=== PATIENT | male | born 1985 | race Caucasian/White ===

== ENCOUNTER 2020-03-06 22:04 | Emergency (ER) | payer OTHER ==
[2020-03-06 22:25] VITALS: BP 107/73; PULSE 77; TEMP 98.6; BMI 23.0
[2020-03-06] MEDS ORDERED: ONDANSETRON 4 MG/2 ML VIAL IVPUSH ONE (23:11)
[2020-03-06] MEDS ORDERED: THIAMINE HCL 100 MG TABLET (FP) PO ONE (23:11)
[2020-03-06] MEDS ORDERED: LACTATED RINGERS SOLUTION 1000 ML INFUS.BAG IV ONE (23:11)
[2020-03-06] MEDS ORDERED: FOLIC ACID 1 MG TABLET (FP) PO ONE (23:11)
[2020-03-06 23:35] LABS: BASO % 0.9 % (0-2.0); EOS % 2.1 % (0-4.5); HEMATOCRIT 45.7 % (35.4-49); HEMOGLOBIN 15.5 GM/dL (11.7-16.9); LYMPH % 20.8 % (8-40); MCH 29.9 pg (25.7-33.7); MCHC 33.9 g/dl (32.0-35.9); MEAN CELL VOLUME 88.1 fl (80-96); MEAN PLT VOLUME 8.6 fl (7.5-11.1); MONO % 8.3 % (3.8-10.2); NEUT % 67.9 % (42.8-82.8); PLATELET COUNT 292 K/MM3 (134-434); RBC 5.19 M/mm3 (4.00-5.60); RDW 13.6 % (11.9-15.9); WHITE BLOOD COUNT 10.4 K/mm3 (4.0-10.0)
[2020-03-06 23:54] LABS: CALCIUM 9.6 mg/dL (8.5-10.1)
[2020-03-06 23:55] LABS: ALBUMIN 4.6 g/dl (3.4-5.0); BLOOD UREA NITROGEN 13.6 mg/dL (7-18)
[2020-03-06] MEDS ORDERED: FOLIC ACID 1 MG TABLET (FP) ONE (23:55)
[2020-03-06] MEDS ORDERED: THIAMINE HCL 100 MG TABLET (FP) ONE (23:55)
[2020-03-06 23:58] LABS: CREATININE 0.7 mg/dL (0.55-1.3)
[2020-03-07] LABS: TOT PROT 8.4 g/dl (6.4-8.2)
[2020-03-07] MEDS ORDERED: BUPRENORPHINE/NALOXONE 8 MG/2 MG FILM PACKET SL ONE (00:04)
[2020-03-07] MEDS ORDERED: BUPRENORPHINE/NALOXONE 8 MG/2 MG FILM PACKET ONE (00:30)
[2020-03-07 00:43] LABS: BILIRUBIN,TOTAL 0.5 mg/dL (0.2-1)
== END 2020-03-07 00:39 | disposition home or self-care (01) ==
LOC: JER 22:04
PROC: 3E033NZ Introduction of Analgesics, Hypnotics, Sedatives into Peripheral Vein, Percutaneous Approach (ICD-10-PCS; principal; 2020-03-06)
DX: F13.20 Sedative, hypnotic or anxiolytic dependence, uncomplicated (principal)
CPT/HCPCS: 36415; 80053; 85025; 99285-25

== ENCOUNTER 2020-03-14 16:18 | Inpatient (IN) | payer OTHER ==
[2020-03-14 17:40] VITALS: BMI 23.0
[2020-03-14] MEDS ORDERED: METHOCARBAMOL 500 MG TABLET PO PRN (18:40)
[2020-03-14] MEDS ORDERED: MAGNESIUM HYDROX 2400MG/30ML ORAL SUSPENSION 30 ML CUP PO PRN (18:40)
[2020-03-14] MEDS ORDERED: MELATONIN 5 MG TABLETS PO PRN (18:40)
[2020-03-14] MEDS ORDERED: NICOTINE POLACRILEX 2 MG GUM BUC PRN (18:40)
[2020-03-14] MEDS ORDERED: ACETAMINOPHEN 325 MG TABLET (FP) PO PRN (18:40)
[2020-03-14] MEDS ORDERED: MENTHOL/PHENOL 1 EACH UD MM PRN (18:40)
[2020-03-14] MEDS ORDERED: IBUPROFEN 400 MG TABLET (FP) PO PRN (18:40)
[2020-03-14] MEDS ORDERED: BISMUTH SUBSALICYLATE 524 MG/30 ML UD PO PRN (18:40)
[2020-03-14] MEDS ORDERED: ONDANSETRON *ODT* 4 MG TABLET SL PRN (18:40)
[2020-03-14] MEDS ORDERED: MAG HYDROX/AL HYDROX/SIMETH 30 ML UNIT-DOSE CUP PO PRN (18:40)
[2020-03-14] MEDS ORDERED: MAGNESIUM CITRATE 300 ML BOTTLE PO PRN (18:40)
[2020-03-14] MEDS ORDERED: cloNIDine HCL 0.1 MG TABLET PO PRN (18:44)
[2020-03-14] MEDS ORDERED: METHADONE HCL 10 MG TABLET (FOR DETOX USE ONLY) PO ONE (19:30)
[2020-03-14] MEDS: GABAPENTIN 300 MG CAPSULE PO SCH (22:19)
[2020-03-14] MEDS: THIAMINE HCL 100 MG TABLET (FP) PO SCH (22:19)
[2020-03-14] MEDS: hydrOXYzine PAMOATE 25 MG CAPSULE (FP) PO PRN (22:26)
[2020-03-15] MEDS: GABAPENTIN 300 MG CAPSULE PO SCH ×2 (05:31→14:27)
[2020-03-15] MEDS: hydrOXYzine PAMOATE 25 MG CAPSULE (FP) PO PRN (05:31)
[2020-03-15] MEDS ORDERED: METHADONE HCL 5 MG TABLET (FOR DETOX USE ONLY) PO ONE (10:00)
[2020-03-15] MEDS: PRENATAL VITAMINS W/ FOLIC ACID TABLET (FP) PO SCH (11:05)
[2020-03-15 12:13] LABS: HEMOGLOBIN 13.5 GM/dL (11.7-16.9); MCH 29.9 pg (25.7-33.7); MCHC 33.7 g/dl (32.0-35.9); MEAN CELL VOLUME 88.9 fl (80-96); MEAN PLT VOLUME 9.8 fl (7.5-11.1); PLATELET COUNT 242 K/MM3 (134-434); RBC 4.51 M/mm3 (4.00-5.60); RDW 14.1 % (11.9-15.9); WHITE BLOOD COUNT 8.3 K/mm3 (4.0-10.0)
[2020-03-15 12:25] LABS: CALCIUM 8.9 mg/dL (8.5-10.1)
[2020-03-15 12:26] LABS: ALBUMIN 3.3 g/dl (3.4-5.0); BLOOD UREA NITROGEN 18.8 mg/dL (7-18)
[2020-03-15 12:29] LABS: CREATININE 0.7 mg/dL (0.55-1.3)
[2020-03-15 12:30] LABS: BILIRUBIN,TOTAL 0.2 mg/dL (0.2-1)
[2020-03-15 12:31] LABS: TOT PROT 6.4 g/dl (6.4-8.2)
[2020-03-15] MEDS: ACETAMINOPHEN 325 MG TABLET (FP) PO PRN ×2 (12:48→21:03)
[2020-03-15] MEDS: GABAPENTIN 400 MG CAPSULE PO SCH ×2 (14:18→22:16)
[2020-03-15] MEDS: diazePAM 5 MG TABLET PO PRN ×2 (17:28→22:17)
[2020-03-15] MEDS: MIRTAZAPINE 15 MG TABLET (FP) PO SCH (22:16)
[2020-03-15] MEDS: THIAMINE HCL 100 MG TABLET (FP) PO SCH (22:17)
[2020-03-16] MEDS: GABAPENTIN 400 MG CAPSULE PO SCH ×3 (05:48→22:21)
[2020-03-16] MEDS: diazePAM 5 MG TABLET PO PRN ×4 (05:50→20:39)
[2020-03-16] MEDS: PRENATAL VITAMINS W/ FOLIC ACID TABLET (FP) PO SCH (09:52)
[2020-03-16] MEDS ORDERED: METHADONE HCL 10 MG TABLET (FOR DETOX USE ONLY) PO ONE (10:00)
[2020-03-16] MEDS: NICOTINE 21 MG/24 HOURS TOPICAL PATCH TD SCH (14:07)
[2020-03-16] MEDS: THIAMINE HCL 100 MG TABLET (FP) PO SCH (22:21)
[2020-03-16] MEDS: MIRTAZAPINE 15 MG TABLET (FP) PO SCH (22:21)
[2020-03-17] MEDS: diazePAM 5 MG TABLET PO PRN (05:47)
[2020-03-17] MEDS: GABAPENTIN 400 MG CAPSULE PO SCH (05:48)
[2020-03-17 09:32] VITALS: BP 133/68; PULSE 96; TEMP 97.1
[2020-03-17] MEDS ORDERED: METHADONE HCL 5 MG TABLET (FOR DETOX USE ONLY) PO ONE (10:00)
[2020-03-17] MEDS: NICOTINE 21 MG/24 HOURS TOPICAL PATCH TD SCH (10:05)
[2020-03-17] MEDS: PRENATAL VITAMINS W/ FOLIC ACID TABLET (FP) PO SCH (10:05)
== END 2020-03-17 10:07 | disposition home or self-care (01) | DRG 773 ==
LOC: YASAS 16:18 → Y6N 19:09
PROVIDERS: ADMIT Allergy & Immunology; ATTEND Allergy & Immunology
PROC: HZ2ZZZZ Detoxification Services for Substance Abuse Treatment (ICD-10-PCS; principal; 2020-03-14)
DX: F11.23 Opioid dependence with withdrawal (principal); F13.10 Sedative, hypnotic or anxiolytic abuse, uncomplicated; F17.210 Nicotine dependence, cigarettes, uncomplicated; F31.9 Bipolar disorder, unspecified; F19.282 Other psychoactive substance dependence with psychoactive substance-induced sleep disorder; H91.91 Unspecified hearing loss, right ear; Z86.718 Personal history of other venous thrombosis and embolism; Z62.810 Personal history of physical and sexual abuse in childhood
CPT/HCPCS: 36415; 80053; 85027; 86780; 93005; 93010; C9803; U0003

== ENCOUNTER 2020-04-30 19:07 | Emergency (ER) | payer SELFPAY ==
[2020-04-30 19:20] VITALS: BP 111/67; PULSE 77; TEMP 98.5; BMI 24.7
== END 2020-04-30 20:24 | disposition home or self-care (01) ==
LOC: JER 19:07
DX: R05 Cough (principal)
CPT/HCPCS: 71046-TC-FY; 99284-25; C9803; U0003

== ENCOUNTER 2021-08-17 10:00 | Emergency (ER) | payer OTHER ==
[2021-08-17 10:16] VITALS: BP 112/71; PULSE 81; TEMP 97.5; BMI 26.5
[2021-08-17] MEDS ORDERED: NALOXONE HCL 0.4 MG/ML VIAL IVPUSH ONE (10:17)
[2021-08-17] MEDS ORDERED: NALOXONE HCL 0.4 MG/ML VIAL ONE (10:20)
[2021-08-18 12:44] LABS: CHLORIDE 106 mmol/L (98-107); SODIUM 141 mmol/L (136-145)
[2021-08-18 12:46] LABS: ALBUMIN 3.9 g/dl (3.4-5.0); ANION GAP 4 MMOL/L (8-16); BLOOD UREA NITROGEN 10.9 mg/dL (7-18); CALCIUM 8.9 mg/dL (8.5-10.1); CO2 30 mmol/L (21-32); GLUCOSE,RANDOM 89 mg/dL (74-106)
[2021-08-18 12:50] LABS: CREATININE 0.7 mg/dL (0.55-1.3); SGOT/AST 16 U/L (15-37); SGPT/ALT 21 U/L (13-61)
[2021-08-18 12:51] LABS: BILIRUBIN,TOTAL 0.3 mg/dL (0.2-1)
[2021-08-18 12:52] LABS: ALK PHOS 83 U/L (45-117)
== END 2021-08-17 14:07 | disposition home or self-care (01) ==
LOC: JER 10:00
PROC: 3E033NZ Introduction of Analgesics, Hypnotics, Sedatives into Peripheral Vein, Percutaneous Approach (ICD-10-PCS; principal; 2021-08-17)
DX: T40.0X Poisoning by, adverse effect of and underdosing of opium (principal)
CPT/HCPCS: 36415; 80053; 80307; 93005; 93010; 99284-25

== ENCOUNTER 2022-02-10 11:59 | Emergency (ER) | payer OTHER ==
[2022-02-10 12:06] VITALS: BP 111/63; PULSE 61; RESP 20; TEMP 98.7; BMI 26.5
[2022-02-10 14:28] LABS: SYPHILIS W/ RPR CONF NON-REACTIVE (NONREACTIVE)
[2022-02-10 14:56] LABS: HIV INTERPRETATION NEGATIVE (NEGATIVE)
== END 2022-02-10 13:29 | disposition home or self-care (01) ==
LOC: JER 11:59 → JERFT 11:59
DX: A64 Unspecified sexually transmitted disease (principal)
CPT/HCPCS: 36415; 86780; 86803; 87389; 87491; 87591; 99283-25

== ENCOUNTER 2022-02-15 12:29 | Emergency (ER) | payer OTHER ==
[2022-02-15 12:45] VITALS: BP 114/74; PULSE 110; RESP 18; TEMP 98; BMI 24.7
== END 2022-02-15 17:46 | disposition home or self-care (01) ==
LOC: JER 12:29
DX: J06.9 Acute upper respiratory infection, unspecified (principal)
CPT/HCPCS: 0241U-QW; 99283-25

== ENCOUNTER 2022-06-22 12:17 | Emergency (ER) | payer OTHER ==
[2022-06-22 12:27] VITALS: BP 90/54; PULSE 50; RESP 18; TEMP 97.6; BMI 25.6
== END 2022-06-22 13:55 | disposition left against medical advice (07) ==
LOC: JER 12:17
DX: F13.10 Sedative, hypnotic or anxiolytic abuse, uncomplicated (principal); F11.20 Opioid dependence, uncomplicated
CPT/HCPCS: 82962; 93005; 93010; 99284-25

== ENCOUNTER 2022-08-29 14:52 | Emergency (ER) | payer OTHER ==
[2022-08-29 15:35] VITALS: BP 109/76; PULSE 96; RESP 16; TEMP 98.1; BMI 24.7
== END 2022-08-29 17:26 | disposition home or self-care (01) ==
LOC: JER 14:52
DX: Z00.00 Encounter for general adult medical examination without abnormal findings (principal)
CPT/HCPCS: 99282-25

== ENCOUNTER 2023-03-01 09:47 | Emergency (ER) | payer OTHER ==
[2023-03-01 10:01] VITALS: BP 113/74; PULSE 101; RESP 17; TEMP 98.6; BMI 25.7
[2023-03-01] MEDS ORDERED: DOXYCYCLINE HYCLATE 100 MG CAPSULE PO ONE ×2 (10:49→11:00)
[2023-03-01] MEDS ORDERED: PENICILLIN G BENZATHINE 1,200,000 UNIT/2 ML PFS IM ONE (10:49)
[2023-03-01 11:29] LABS: PH,URINE 5.5 (5.0-8.0); URINE APPEARANCE CLEAR; URINE BILIRUBIN NEGATIVE (NEGATIVE); URINE COLOR YELLOW; URINE GLUCOSE (UA) NEGATIVE (NEGATIVE); URINE KETONE TRACE (NEGATIVE); URINE LEUK ESTERASE NEGATIVE (NEGATIVE); URINE NITRITE NEGATIVE (NEGATIVE); URINE PROTEIN NEGATIVE (NEGATIVE); URINE UROBILINOGEN 0.2 mg/dL (0.2-1.0)
[2023-03-01 11:29] LABS: BASO % 0.6 % (0-2.0); EOS % 1.2 % (0-4.5); LYMPH % 25.9 % (8-40); MCH 29.9 pg (25.7-33.7); MCHC 33.4 g/dl (32.0-35.9); MEAN CELL VOLUME 89.6 fl (80-96); MEAN PLT VOLUME 9.4 fl (7.5-11.1); MONO % 7.8 % (3.8-10.2); NEUT % 64.5 % (42.8-82.8); PLATELET COUNT 220 10^3/uL (134-434); RBC 4.69 M/mm3 (4.00-5.60); RDW 13.5 % (11.9-15.9); WHITE BLOOD COUNT 5.8 K/mm3 (4.0-10.0)
[2023-03-01 11:58] LABS: POTASSIUM 4.1 mmol/L (3.5-5.1)
[2023-03-01 12:00] LABS: ALBUMIN 4.2 g/dl (3.4-5.0); CALCIUM 9.9 mg/dL (8.5-10.1)
[2023-03-01 12:01] LABS: BLOOD UREA NITROGEN 9.8 mg/dL (7-18)
[2023-03-01 12:04] LABS: CREATININE 0.7 mg/dL (0.55-1.3)
[2023-03-01 12:05] LABS: BILIRUBIN,TOTAL 0.3 mg/dL (0.2-1); TOT PROT 7.4 g/dl (6.4-8.2)
[2023-03-01 12:10] LABS: SYPHILIS W/ RPR CONF NON-REACTIVE (NONREACTIVE)
[2023-03-01 12:38] LABS: HIV INTERPRETATION NEGATIVE (NEGATIVE)
== END 2023-03-01 11:31 | disposition home or self-care (01) ==
LOC: JERFT 09:47
DX: A53.9 Syphilis, unspecified (principal); A64 Unspecified sexually transmitted disease
CPT/HCPCS: 36415; 80053; 81003; 85025; 86704; 86780; 86803; 87086; 87340; 87389; 87517; 99284-25

== ENCOUNTER 2023-09-08 11:35 | Emergency (ER) | payer OTHER ==
[2023-09-08 11:46] VITALS: BP 120/76; PULSE 90; RESP 18; TEMP 99.6; BMI 25.8
== END 2023-09-08 12:16 | disposition home or self-care (01) ==
LOC: JER 11:35 → JERFT 11:35
DX: L73.9 Follicular disorder, unspecified (principal)
CPT/HCPCS: 99283-25

== ENCOUNTER 2023-12-14 11:55 | Emergency (ER) | payer OTHER ==
[2023-12-14 12:13] VITALS: BP 121/90; PULSE 98; RESP 16; TEMP 99; BMI 24.7
[2023-12-14 13:39] LABS: HEMATOCRIT 41.5 % (35.4-49); HEMOGLOBIN 14.1 GM/dL (11.7-16.9); MCH 29.7 pg (25.7-33.7); MCHC 33.9 g/dl (32.0-35.9); MEAN CELL VOLUME 87.7 fl (80-96); MEAN PLT VOLUME 8.9 fl (7.5-11.1); PLATELET COUNT 230 10^3/uL (134-434); RBC 4.73 M/mm3 (4.00-5.60); RDW 14.2 % (11.9-15.9); WHITE BLOOD COUNT 7.3 K/mm3 (4.0-10.0)
[2023-12-14 13:53] LABS: HCG,QUALITATIVE URINE Negative
[2023-12-14 13:59] LABS: EPI CELLS 4 /uL (0-25.1); HYALINE CASTS 0 /uL (0-3.1); PH,URINE 5.5 (5.0-8.0); URINE APPEARANCE CLEAR; URINE BACTERIA 6 /uL (0-1359); URINE BILIRUBIN NEGATIVE (NEGATIVE); URINE COLOR DK YELLOW; URINE GLUCOSE (UA) NEGATIVE (NEGATIVE); URINE KETONE TRACE (NEGATIVE); URINE LEUK ESTERASE 1+ (NEGATIVE); URINE NITRITE NEGATIVE (NEGATIVE); URINE PROTEIN NEGATIVE (NEGATIVE); URINE RBC 9 /uL (0-23.9); URINE WBC 43 /uL (0-25.8)
[2023-12-14 13:59] LABS: BLOOD UREA NITROGEN 8.7 mg/dL (7-18); CALCIUM 9.3 mg/dL (8.5-10.1)
[2023-12-14 14:03] LABS: CREATININE 0.8 mg/dL (0.55-1.3)
[2023-12-14 14:04] LABS: BILIRUBIN,TOTAL 0.2 mg/dL (0.2-1); TOT PROT 7.1 g/dl (6.4-8.2)
[2023-12-14 17:54] LABS: HIV INTERPRETATION NEGATIVE (NEGATIVE)
== END 2023-12-14 13:15 | disposition home or self-care (01) ==
LOC: JERFT 11:55
DX: Z11.3 Encounter for screening for infections with a predominantly sexual mode of transmission (principal)
CPT/HCPCS: 36415; 80053; 81003; 84703; 85027; 86780; 86803; 87389; 87491; 87591; 87661; 99283-25